=== PATIENT | male | born 1940 | race Caucasian/White ===

== ENCOUNTER 2019-05-07 10:33 | Day surgery (SDC) | payer MEDICARE, OTHER, SELFPAY ==
--- NOTE | 2019-05-05 16:03 | PM.OP.1 ---
Operative Date/Time/Diagnoses Date of procedure: 05/07/19 Time of procedure: 11:45 Procedure & Clinicians Procedure: Preoperative diagnoses: 1. 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 2. 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 3, Previous right vitrectomy for epiretinal membrane 4. Anxiety Postoperative diagnoses: 1. Cataract removed by phacoemulsification with placement of posterior chamber intraocular lens. Procedure: Complex phacoemulsification with posterior chamber intraocular lens implant and use of capsule capsular dye. Surgeon: Kavya Yuen MD Complications: None Specimen: None Implant: ZCBOO+17.5 for a -0.70 target of patient choice. Blood loss: None Anesthesia: Retrobulbar with monitored standby Description of procedure: Patient presents with a complaint of decreased vision due to cataract which is affecting activities of daily living. He has significant visual loss affecting his driving and reading and this is best seeing. His right eye has undergone posterior vitrectomy and epiretinal membrane peel and still has residual distortion. He does have significant pseudoexfoliation pseudoexfoliation syndrome which increases the risk of the stability of the lens. He does have phimosis of his right anterior capsule post surgical The patient wants surgery to improve vision. After extensive discussion he chooses a -0.70 target. The patient was taken to the operating room and given IV sedation. A retrobulbar block consisting of 6 cc of 2% xylocaine without epinephrine mixed half and half with 0.5% Marcaine with 1 cc of hyaluronidase added is placed between the medial and lateral 1/3 of the inferior orbital rim. The eye is manually massaged for 30 sec, prepped using Betadine solution, and draped in the usual sterile fashion. Temporal approach was made, a 1 mm side-port incision was made 90? from the proposed clear corneal incision position. Phenylephrine 1.5% mixed with 1% xylocaine 0.2 cc was placed into the anterior chamber. Due to poor red reflex it was felt to increase safety using capsular dye. An air bubble was placed. Then visudyne dye was placed in the anterior capsule. This was then irrigated out with BSS. Viscoat followed by Healon was then placed. A 2.6 mm clear incision with a 2.6 mm blade was placed. A 360 degree capsulorrhexis style capsulotomy was then performed with a cystitome needle on a Healon greatly aided by the capsular dye. Hydrodelineation and hydrodissection were performed. The phacoemulsification unit is introduced, and sculpting notice used to groove the central lens. It is then removed in chopping mode. Epi nucleus is removed with epinuclear mode and irrigation aspiration was used to remove the peripheral cortex. The posterior capsule is polished. The zonules were intact. The intraocular lens is selected, inspected, power confirmed, and placed in the posterior chamber. The wound was stromally hydrated and tested for leaks, there was none and it was left sutureless. Vigamox 0.1 cc was placed into the anterior chamber. Kenalog 0.2 cc was placed in the superior subconjunctival space. A drop of antibiotic and was placed and the eye was patched and shielded. The patient was stable and returned to the recovery room in excellent condition. Dictated by: Kavya Yuen MD Copy to: [facility] Same procedure as scheduled: Yes
--- NOTE | 2019-05-06 19:03 | PM.PREOP ---
Pre-operative Note Interval Note History & Physical reviewed/Exam performed by Physician: Yes Changes to H&P: No
[2019-05-07] MEDS: PROPARACAINE 0.5% OPHTH SOL 2 DROPS EYE-OP (11:13)
[2019-05-07] MEDS: CATARACT EYE COMPOUND (10 DROPS/SYRINGE) 3 DROPS EYE-OP (11:17)
[2019-05-07 11:18] VITALS: BMI 21.0
[2019-05-07 11:25] VITALS: BP 143/74; PULSE 53; RESP 16; TEMP 36.5; O2SAT 100
--- NOTE | 2019-05-07 11:43 | SUR.OPER ---
Supine on eye stretcher, head on extension cradle secured with tape. Arms tucked at sides with blanket. Pillow under knees.
[2019-05-07] MEDS: HYALURONATE SODIUM 10 MG/ML SYRINGE INJ (12:41)
[2019-05-07] MEDS: CHONDROIDTIN/SOD HYALURONATE 1.05 ML SYRINGE INTRAOCULA (12:41)
[2019-05-07] MEDS: TRYPAN BLUE 0.5 ML SYRINGE INJ (12:42)
[2019-05-07] MEDS: TRIAMCINOLONE 50 MG/5 ML VIAL INJ (12:42)
[2019-05-07] MEDS: ERYTHROMYCIN OPHTH 1 GM OINT 1 APPLIC EYE-LEFT (12:42)
[2019-05-07] MEDS: PHENYLEPHRINE/LIDOCAINE VIAL (OR) 0.2 ML EYE-OP (12:43)
[2019-05-07] MEDS: MOXIFLOXACIN INJ 5 MG/ML VIAL EYE-OP (12:43)
[2019-05-07] MEDS: LIDOCAINE 2% 4 ML, BUPIVACAINE 0.5% (PF) 4 ML, HYALURONIDASE 150 UNIT INJ (12:44)
[2019-05-07] MEDS: BALANCED SALT IRRIG SOLN NO.2 500 ML, EPINEPHrine 1 MG IRR (12:46)
[2019-05-07 13:11] VITALS: BP 141/67; PULSE 54; RESP 12; TEMP 36.4; O2SAT 100
== END 2019-05-07 13:29 | disposition home or self-care (01) ==
LOC: OR 10:37
PROVIDERS: PCP Family Medicine Geriatric Medicine; Referring Provider Ophthalmology; Visit Provider Ophthalmology
PROC: (CPT 66982; principal; 2019-05-07 11:45)
DX: H25.812 Combined forms of age-related cataract, left eye (principal); H26.8 Other specified cataract; F41.9 Anxiety disorder, unspecified; H40.012 Open angle with borderline findings, low risk, left eye
CPT/HCPCS: 66982; J0171; J2704; J3301; J3470

== ENCOUNTER → 2021-09-09 12:07 | Outpatient (CLI) | payer MEDICARE, OTHER, SELFPAY ==
[2021-09-09 13:11] LABS: Add Manual Diff / Slide Review NO; Basophils Absolute Auto 0 /uL (0-100); Basophils Percent Auto 0.5 % (0-2); Eosinophils Absolute Auto 300 /uL (0-450); Eosinophils Percent Auto 4.6 % (2-4); Hematocrit 43.5 % (41-53); Hemoglobin 14.6 g/dL (13.5-17.5); Lymphocytes Absolute Auto 2000 /uL (1100-4500); Lymphocytes Percent Auto 27.5 % (25-40); Mean Corpuscular HGB Conc 33.6 % (30-36); Mean Corpuscular Hemoglobin 33.1 PG (26-34); Mean Corpuscular Volume 98.3 fL (80-100); Monocytes Absolute Auto 800 /uL (0-900); Monocytes Percent Auto 11.4 % (3-14); Neutrophils Absolute Auto 4000 /uL (1500-7000); Platelet Count 265 X10^3/uL (150-400); Red Blood Cell Count 4.42 X10^6/uL (4.5-5.9); Red Cell Distribution Width 13.7 % (11.6-14.8); White Blood Cell Count 7.2 X10^3/uL (4.5-11.0)
[2021-09-09 13:34] LABS: Alanine Aminotransferase 22 IU/L (<50); Albumin 4.3 g/dL (3.5-5.0); Albumin Globulin Ratio 1.5 (1.0-2.8); Alkaline Phosphatase 70 U/L (38-126); Aspartate Aminotransferase 28 IU/L (17-59); BUN Creatinine Ratio 17.5 (6-22); Bilirubin Total 0.6 mg/dL (0.2-1.3); Blood Urea Nitrogen 18 mg/dL (9-20); Calcium 9.5 mg/dL (8.4-10.2); Carbon Dioxide 30 mmol/L (22-32); Chloride 105 mmol/L (98-107); Estimated Glomerular Filt Rate > 60 mL/min (>60); Globulin 2.9 g/dL (1.7-4.1); Glucose 83 mg/dL (80-110); HEMOLYSIS < 15 (0-50); Potassium 4.3 mmol/L (3.4-5.1); Sodium 141 mmol/L (137-145); Total Protein 7.2 g/dL (6.3-8.2)
[2021-09-10 15:02] LABS: High Sensitivity CRP - Cardiac 0.7 mg/L (1.0-3.0)
[2021-09-10 19:42] LABS: SS A Ro Sjogrens Antibody < 0.2 AI (0.0-0.9); SS B La Sjogrens Antibody < 0.2 AI (0.0-0.9)
[2021-09-12 16:20] LABS: ANA Screen, IFA Negative (.)
== END ==
PROVIDERS: PCP Internal Medicine; Referring Provider Ophthalmology; Visit Provider Ophthalmology
DX: H57.12 Ocular pain, left eye (principal); H16.223 Keratoconjunctivitis sicca, not specified as Sjogren's, bilateral; H10.229 Pseudomembranous conjunctivitis, unspecified eye
CPT/HCPCS: 36415; 80053; 85025; 86038; 86140; 86235

== ENCOUNTER → 2022-11-14 10:35 | Outpatient (CLI) | payer MEDICARE, OTHER, SELFPAY ==
--- NOTE | 2022-11-14 10:39 | DI.RAD.S_ITS ---
PROCEDURE: XR LUMBAR SPINE MIN 4V INDICATIONS: LOW BACK PAIN TECHNIQUE: 5 views of the lumbar spine were acquired, including bilateral oblique views. COMPARISON: None. FINDINGS: Bones: 5 nonrib-bearing vertebrae are present. There is normal bony alignment. Disc space loss at L5-S1. Small vertebral body osteophytes. No vertebral body compression fractures. No suspicious bony lesions. Soft tissues: Overlying bowel gas pattern is normal. No suspicious soft tissue calcifications. Oblique images: No pars defects. IMPRESSION: No compression fracture. [id number] DDD. Dictated by: Taco Kohler M.D. on 11/14/2022 at 16:09 Approved by: Taco Kohler M.D. on 11/14/2022 at 16:18
== END ==
PROVIDERS: PCP Internal Medicine; Referring Provider Anesthesiology; Visit Provider Anesthesiology
DX: M51.17 Intervertebral disc disorders with radiculopathy, lumbosacral region (principal); M54.50 Low back pain, unspecified; M71.38 Other bursal cyst, other site
CPT/HCPCS: 72110; 99214

== ENCOUNTER → 2022-11-29 10:21 | Outpatient (CLI) | payer MEDICARE, OTHER, SELFPAY ==
--- NOTE | 2022-11-29 10:23 | DI.MRI.S_ITS ---
PROCEDURE: MR PELIS WO/W CON INDICATIONS: sacral cyst, radiculopathy TECHNIQUE: Noncontrast axial and oblique coronal T1 spin echo and STIR through the sacroiliac joints. COMPARISON: None. FINDINGS: Image quality: Excellent. Bones: Diffusely heterogeneous marrow signal throughout visualized bony pelvis is seen. Mild bilateral sacroiliac joint space narrowing and subchondral sclerosis is seen. No adjacent bone marrow edema to suggest active sacroiliitis. No bony ankylosis. No suspicious marrow space occupying lesions. Soft tissues: No presacral masses. Rectum appears normal in caliber and wall thickness. No pathologic free pelvic fluid. 2.4 x 3.9 x 5.3 cm thin walled CSF signal intensity structure is seen within lower spinal canal extending from S1 through S3 levels and show no contrast enhancement. No enhancing soft tissue mass is seen. No pelvic free fluid. IMPRESSION: 1. 2.4 x 3.9 x 5.3 cm sacral cyst as above. No enhancing soft tissue mass. No pelvic free fluid. 2. Bilateral sacroiliac joint osteoarthritis. No evidence of active sacroiliitis or ankylosis. No pelvic fracture or dislocation. No abnormal intraosseous enhancement. Diffusely heterogeneous marrow signal which may indicated hematopoietic process. Marrow infiltrative process such as multiple myeloma cannot be entirely excluded suggest clinical correlation. Dictated by: Kranthi Merida M.D. on 11/30/2022 at 9:33 Approved by: Kranthi Merida M.D. on 11/30/2022 at 9:41
--- NOTE | 2022-11-29 10:23 | DI.MRI.S_ITS ---
PROCEDURE: MR LUMBAR SPINE WO CON INDICATIONS: sacral cyst, radiculopathy TECHNIQUE: Noncontrast sagittal T1 spin echo and T2 fast echo, sagittal STIR, and T2 fast spin echo through the lumbar spine. In cases with scoliosis, additional coronal T2 fast spin echo may be performed. COMPARISON: [facility], CR, XR LUMBAR SPINE MIN 4V, 11/14/2022, 10:43. [facility], MR, MR LUMBAR SPINE WITHOUT CONTRAST, 02/05/2016, 14:06. Outside Facility, RG, MRI L-SPINE W/O CONTRAST, 02/05/2016, 14:06. [facility], MR, MR PELVIS WO/W CON, 11/29/2022, 11:32. FINDINGS: Image quality: Excellent. Alignment and Curvature: There is normal bony alignment. Bone Marrow: Heterogenous but within normal limits. Spinal Cord: Conus is elongated and tapers inferiorly to at least to the L3 level. At the L4-5 level, there is fatty infiltration and thickening of the filum terminale which appears to be tethered in the left lateral thecal sac at the level of the S1 vertebral body. At this level, there is also a large intracanalicular cystic structure displacing the thecal sac to the left and remodeling the dorsal sacral plate, partially imaged Paraspinous Soft Tissues: No paravertebral masses. T12-L1: Normal appearance. L1-L2: Disc space narrowing with circumferential disc bulge and hypertrophic facet joints results in [id number] central stenosis. No foraminal stenosis. L2-L3: Disc height is preserved. Mild disc bulge and hypertrophic facet joints with mild central and no foraminal stenosis L3-L4: Disc height is preserved. No central stenosis. Moderate right and mild left foraminal stenosis L4-L5: Disc height is preserved. Mild disc bulge and hypertrophic facet joints results in mild effacement of the lateral recesses. No central stenosis. Moderate bilateral foraminal stenosis L5-S1: Disc space narrowing present. No central stenosis. 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 Filum terminalis shows distal fatty infiltration as well as attachment to the left sacral thecal sac associated displacement from a large sacral cyst. Neurosurgical consultation advised. Approved by: Connor Pelayo M.D. on 11/29/2022 at 13:48
== END ==
PROVIDERS: PCP Internal Medicine; Referring Provider Anesthesiology; Visit Provider Anesthesiology
DX: M54.16 Radiculopathy, lumbar region (principal); M71.38 Other bursal cyst, other site; G95.89 Other specified diseases of spinal cord; M51.36 Other intervertebral disc degeneration, lumbar region; M47.816 Spondylosis without myelopathy or radiculopathy, lumbar region; M48.061 Spinal stenosis, lumbar region without neurogenic claudication; M48.07 Spinal stenosis, lumbosacral region
CPT/HCPCS: 72148; 72197; A9579